=== PATIENT | female | born 1950 ===

== ENCOUNTER 2017-10-05 10:02 | Day surgery (SDC) | payer MEDICARE ==
[2017-10-05] MEDS ORDERED: ceFAZolin 1 gm in NS 2 GM/200 ML BAG IVPB ONE (11:28)
[2017-10-05] MEDS ORDERED: Propofol 10 mg/ml Inj (20 ML) ONE (11:48)
[2017-10-05] MEDS: Bupivacaine HCl 0.25% PF (30 ml) Inj ONE ×2 (12:20→13:23)
[2017-10-05] MEDS: Lidocaine/Epinephrine 1% 1:100000 10 ML IJ ONE ×2 (12:20→13:23)
[2017-10-05] MEDS ORDERED: Neostigmine Methylsulfate 3mg/3ml Syringe IV ONE (13:16)
[2017-10-05] MEDS ORDERED: Oxycodone/Acetaminophen 5/325 mg Tab PO PRN (13:35)
--- NOTE | 2017-10-05 13:35 | PCM.SURG1 ---
Surgeon's Initial Post Op Note - Surgeon's Notes Surgeon: Dr. Greer Leaf Coverer: John Panchal PGY2 [place] Type of Anesthesia: General Endo, Local Pre-Operative Diagnosis: choledocolithiasis Operative Findings: gallstones Post-Operative Diagnosis: Same Operation Performed: robotic cholecystectomy Specimen/Specimens Removed: gallbladder Estimated Blood Loss: EBL {In ML}: 10 Blood Products Given: N/A Drains Used: No Drains Post-Op Condition: Good Date of Surgery/Procedure: 10/05/17 Time of Surgery/Procedure: 13:34
[2017-10-05] MEDS: HYDROmorphone 0.5 mg/0.5 ml ISec IVP PRN ×2 (13:55→14:42)
[2017-10-05] MEDS ORDERED: Lactated Ringer's 1,000 ML IV ONE (15:00)
[2017-10-05 16:21] VITALS: BP 147/75; PULSE 90; RESP 18; TEMP 97; O2SAT 20
--- NOTE | 2017-10-08 07:17 | OP ---
PROCEDURE DATE: 10/05/2017 PREOPERATIVE DIAGNOSES: 1. Chronic cholecystitis and cholelithiasis. 2. Status post endoscopic retrograde cholangiopancreatography for common bile duct stone. 3. Possible extensive postinfectious adhesion. POSTOPERATIVE DIAGNOSES: 1. Chronic cholecystitis and cholelithiasis. 2. Status post endoscopic retrograde cholangiopancreatography for common bile duct stone. 3. Possible extensive postinfectious adhesion. 4. Distended, edematous, irregular shape of gallbladder. PROCEDURE DONE: 1. Robotic cholecystectomy. 2. Robotic drainage and aspiration of distended gallbladder. ANESTHESIA: General endotracheal tube anesthesia. ESTIMATED BLOOD LOSS: Around 10 mL. DRAINS: None. PATHOLOGY: Gallbladder with gallstone was sent for the pathology. COMPLICATIONS: None. INTRAOPERATIVE FINDINGS: The patient had extremely distended thickened gallbladder with irregular growth on the fundus of the gallbladder and intraoperative gallbladder aspiration as well as drainage was done in order to minimize damage to the growth of the fundic area of the gallbladder. DESCRIPTION OF PROCEDURE: On intraoperative steps, this is a 66-year-old female who was diagnosed with chronic cholecystitis and cholelithiasis, and the patient is status post ERCP with CBD stone removal, and the patient was consented for the robotic cholecystectomy, possible open, brought to the OR, placed supine on the operating room table. After induction of anesthesia, the abdomen was prepped and draped in the usual sterile fashion. Supraumbilical transverse incision was made after incising the skin, subcutaneous tissue, and the fascia. The robotic camera port was placed. Pneumo was created. Another 3/8 mm port was placed in the upper abdomen. The robot was brought in. Camera arm as well as arm 1 and arm 2 were docked. The patient was found to have irregular growth on the fundus of the gallbladder with extremely distended and thickened gallbladder. The first aspiration of the gallbladder was done robotically and the gallbladder body was retracted cranially. Calot's triangle dissection was done. Cystic duct and cystic artery was identified, and it was tipped at 3 places and cut in between 2 clips near the gallbladder. The gallbladder was dissected free from the gallbladder fossa, taken in EndoCatch bag, taken out through the umbilical port site. Suction-irrigation of the gallbladder fossa as well as perihepatic area was done for the bile spillage, and after proper hemostasis, then gallbladder was sent off the table for pathology. All the instruments were taken out, robot was undocked. All the port was taken out under vision. The pneumo was deflated. The umbilical port site was closed in 2 layers, fascia with 0 Vicryl interrupted suture, skin with 4-0 Monocryl, and dry sterile dressing was applied. The patient tolerated the procedure well. Count of instrument and gauze was correct. There were no apparent complication. Ananda Greer MD
== END 2017-10-05 17:24 | disposition home or self-care (01) ==
LOC: C.SDS 10:02
PROVIDERS: ATTEND Surgery Surgical Critical Care
DX: K80.10 Calculus of gallbladder with chronic cholecystitis without obstruction (principal); K82.8 Other specified diseases of gallbladder
CPT/HCPCS: 47562; 88304; J0690; J1170; J2405; J2704; J2710; J3010; J7030; J7120